=== PATIENT | female | born 1970 | race Caucasian/White ===

== ENCOUNTER → 2017-02-23 | Outpatient (CLI) | payer OTHER ==
--- NOTE | 2017-02-23 12:01 | DIAGNOSTIC IMAGING REPORT ---
LEFT FOOT MIN 3 VIEWS ROUTINE CLINICAL HISTORY: 47 years-old Female presenting with FOOT/ANKLE PAIN, no history of trauma, heel pain. TECHNIQUE: Frontal, oblique, and lateral views of the left foot were obtained. COMPARISON: None. FINDINGS: Prominent bone spurs at the posterior tuberosity of the calcaneus as well as at the inferior calcaneus. Suggestion of thickening of the Achilles tendon. Os trigonum may be present. Deformity of the head of the first metatarsal, possibly old injury. No acute fracture or malalignment. IMPRESSION: 1. No acute or osseous injury of the left foot. 2. Prominent enthesophytes at the Achilles tendon insertion and at the plantar fascia origin. Electronically signed by: Skip Granados M.D. 02/23/2017 12:00 PM Dictated Date/Time: 02/23/2017 11:57 AM
--- NOTE | 2017-02-23 12:02 | DIAGNOSTIC IMAGING REPORT ---
LEFT ANKLE MIN 3 VIEWS ROUTINE CLINICAL HISTORY: 47 years-old Female presenting with FOOT/ANKLE PAIN. TECHNIQUE: Frontal, mortise, and lateral views of the left ankle were obtained. COMPARISON: None. FINDINGS: Irregularity of the medial malleolus indicating prior avulsion fracture or ligamentous injury. Prominent bone spurs at the posterior tuberosity of the calcaneus and inferior calcaneus. Suggestion of thickening of the Achilles tendon. Ankle mortise intact. No acute fracture or malalignment. IMPRESSION: 1. No acute osseous injury of the left ankle. 2. Prominent enthesophytes at the Achilles tendon insertion and plantar fascia origin. Electronically signed by: Skip Granados M.D. 02/23/2017 12:01 PM Dictated Date/Time: 02/23/2017 12:00 PM
== END | disposition home or self-care (01) ==
LOC: C.RAD 11:32
PROVIDERS: ATTEND Podiatrist Foot & Ankle Surgery
DX: M25.572 Pain in left ankle and joints of left foot (principal); M79.672 Pain in left foot